=== PATIENT | male | born 1950 | race Caucasian/White ===

== ENCOUNTER 2017-06-07 19:09 | Observation (INO) | payer MEDICARE, OTHER ==
[~2017-06-07 19:09] MED LIST: DEXAMETHASONE SOD PHOS 4 MG/ML VIAL IV ONE; DIPH1TAB36 PO; LIDOCAINE HCL 1% PF 5 ML AMPULE OTHER ONE; ONDANSETRON HCL 4 MG/2 ML VIAL IV PUSH ONE; PROPOFOL 200 MG/20 ML AMP IV ONE; PROT40TA PO; ROCURONIUM INJ 50 MG/5 ML SYRINGE IV PUSH ONE; ULTR50TA PO
[2017-06-07 19:11] VITALS: BP 145/70; PULSE 112; RESP 16; TEMP 99.4; O2SAT 96
[2017-06-07] MEDS ORDERED: SODIUM CHLOR 0.9% 1000 ML INJ 1,000 ML IV SCH (19:26)
[2017-06-07] MEDS ORDERED: SODIUM CHLORIDE 0.9% FLUSH 10 ML FLUSH IV FLUSH PRN ×2 (19:30→22:30)
[2017-06-07] MEDS ORDERED: PIPERACIL-TAZO 3.375 GM PREMIX 50 ML IV ONE (19:30)
--- NOTE | 2017-06-07 19:40 | PD ---
HPI Chief Complaint: Abdominal Pain Time Seen by Provider: 19:23 Travel History International Travel<30 days: No Contact w/Intl Traveler<30days: No Traveled to known affect area: No History of Present Illness HPI This is a 66-year-old gentleman with history chronic bronchitis, diverticulosis , who presents today with complaints of abdominal pain since yesterday. Patient on outpatient CT scan that showed a nonruptured right sided appendicitis. The patient reports low-grade fevers with associated nausea vomiting. He denies any diarrhea. He's been treated for bronchitis over last week. He just finished his Medrol Dosepak and antibiotics. He states he was given a dose of steroids intramuscularly as well as an antibiotic that he's not sure what it was. There are no other complaints time my examination. PFSH Past Medical History Diminished Hearing: No Hypertension: Yes Tetanus Vaccination: Unknown Influenza Vaccination: No Social History Alcohol Use: Yes (rare) Tobacco Use: No Substance Use: No Allergies-Medications (Allergen,Severity, Reaction): Coded Allergies: No Known Allergies (Verified , 08/30/15) Reported Meds & Prescriptions Reported Meds & Active Scripts Active No Active Prescriptions or Reported Medications Review of Systems Except as stated in HPI: all other systems reviewed are Neg General / Constitutional: Positive: Fever, No: Chills (low-grade) HENT: No: Headaches, Lightheadedness, Neck Pain Cardiovascular: No: Chest Pain or Discomfort, Palpitations Respiratory: Positive: Cough, No: Shortness of Breath Gastrointestinal: Positive: Nausea, Vomiting, Abdominal Pain (right lower quadrant), No: Diarrhea Genitourinary: No: Frequency, Dysuria Neurologic: No: Weakness, Headache Physical Exam Narrative GENERAL: Well-nourished, well-developed patient, in no acute respiratory distress. SKIN: Focused skin assessment warm/dry. HEAD: Normocephalic/atraumatic. EYES: No scleral icterus. No injection or drainage. NECK: Supple, trachea midline. CARDIOVASCULAR: Regular rate and rhythm without murmurs, gallops, or rubs. RESPIRATORY: Breath sounds equal bilaterally. No accessory muscle use. GASTROINTESTINAL: Abdomen soft, obese. There is right lower sided abdominal pain with no rebound. MUSCULOSKELETAL: No cyanosis, or edema. NEUROLOGICAL: Awake and alert. Cranial nerves II through XII intact. Motor grossly within normal limits. Five out of 5 muscle strength in all muscle groups. Normal speech. Data Data Last Documented VS Vital Signs Date Time Temp Pulse Resp B/P (MAP) Pulse Ox O2 Delivery O2 Flow Rate FiO2 06/07/17 19:21 18 06/07/17 19:11 99.4 112 145/70 (95) 96 Room Air Orders Orders Complete Blood Count With Diff (06/07/17:) Comprehensive Metabolic Panel (06/07/17) Prothrombin Time / Inr (Pt) (06/07/17) Act Partial Throm Time (Ptt) (06/07/17) Iv Access Insert/Monitor (06/07/17) Ecg Monitoring (06/07/17) Oximetry (06/07/17) Sodium Chlor 0.9% 1000 Ml Inj (Ns 1000 M (06/07/17) Sodium Chloride 0.9% Flush (Ns Flush) (06/07/17:30) Piperacil-Tazo 3.375 Gm Premix (Zosyn 3. (06/07/17 19:30) Electrocardiogram (06/07/17:) Type And Screen (06/07/17:) Ondansetron Inj (Zofran Inj) (06/07/17 19:45) Hydromorphone Pf Inj (Dilaudid Pf Inj) (06/07/17 19:45) Labs Laboratory Tests Test 06/07/17:30 MDM Medical Decision Making Medical Screen Exam Complete: Yes Emergency Medical Condition: Yes Differential Diagnosis Appendicitis versus diverticulitis versus gastroenteritis Narrative Course 66-year-old male with history of chronic bronchitis, diverticulosis, presents with a diagnosis of appendicitis. The patient an outpatient collado CT scan that showed a nonruptured appendicitis. The patient has pain with insertion nausea vomiting. There is no reported diarrhea. He also has low-grade fever subjectively. Labs have been obtained. The patient will be made ready for the OR. Case was discussed with Dr. João Paulson, who was aware of the patient's arrival. He states he will touch base with the OR and make arrangements for him to be taken up as soon as possible. Patient is been premedicated with Zosyn. He is also been given pain medicine and nausea medicine as well as IVs fluids started. Diagnosis Primary Impression: Acute appendicitis Admitting Information Admitting Physician Requests: Observation Scripts No Active Prescriptions or Reported Meds Hany William MD Jun 07, 2017 19:40
[2017-06-07] MEDS ORDERED: ONDANSETRON HCL 4 MG/2 ML VIAL IV PUSH ONE (19:45)
[2017-06-07] MEDS ORDERED: HYDROmorphone HCL PF 1 MG/ML VIAL IV PUSH ONE (19:45)
[2017-06-07] MEDS ORDERED: ACETAMINOPHEN 1000 MG/100 ML 100 ML IV ONE (20:20)
[2017-06-07 20:21] LABS: AUTOMATED NEUTROPHIL # 17.7 TH/MM3 (1.8-7.7); BASOPHIL % 0.2 % (0.0-2.0); HEMATOCRIT 46.6 % (39.0-51.0); HEMO FLAGS DIFF FINAL; LYMPH % 3.8 % (9.0-44.0); LYMPHOCYTE # 0.7 TH/MM3 (1.0-4.8); MEAN CELL VOLUME 83.8 FL (80.0-100.0); MEAN CORPUSCULAR HEMOGLOBIN 27.5 PG (27.0-34.0); MEAN CORPUSCULAR HGB CONC 32.8 % (32.0-36.0); MONO % 2.6 % (0.0-8.0); NEUT % 93.4 % (16.0-70.0); PLATELET COUNT 233 TH/MM3 (150-450); RED BLOOD COUNT 5.56 MIL/MM3 (4.50-5.90); RED CELL DISTRIBUTION WIDTH 14.9 % (11.6-17.2)
[2017-06-07 20:22] LABS: APTT (PATIENT) 30.3 SEC (24.3-30.1); INTERNATIONAL NORMALIZED RATIO 1.1 RATIO; PROTHROMBIN TIME - PATIENT 12.3 SEC (9.8-11.6)
--- NOTE | 2017-06-07 20:22 | HHI.HP ---
HPI Service General Surgery Primary Care Physician Unknown Admission Diagnosis Appendicitis Chief Complaint: abdominal pain History of Present Illness Mr. Colon is a 66 yo M who presents after having an outpatient CT scan revealing acute appendicitis. The patient reports that he developed periumbilical and upper abdominal pain yesterday which worsened and localized to the right lower quadrant. He's had nausea and vomiting as well as chills. He denies any surgical history on his abdomen. He went to his primary care physician who ordered a CT scan of the abdomen and pelvis which was performed at [facility]. This revealed acute appendicitis and he was recommended to proceed directly to the emergency room. He's been treated over the last month for an upper respiratory tract infection with chronic cough. He' s been on antibiotics as well as steroids. Review of Systems Constitutional: COMPLAINS OF: Chills, DENIES: Fever Eyes: DENIES: Eye inflammation, Eye pain Respiratory: COMPLAINS OF: Cough, DENIES: Shortness of breath Cardiovascular: DENIES: Chest pain, Palpitations Gastrointestinal: COMPLAINS OF: Abdominal pain, Nausea, Vomiting Musculoskeletal: DENIES: Muscle aches, Back pain Integumentary: DENIES: Pruritus, Rash Neurologic: DENIES: Paresthesias, Seizures Past Family Social History Past Medical History Hypertension Diverticulosis Past Surgical History None Reported Medications Reported Meds & Active Scripts Active No Active Prescriptions or Reported Medications Allergies: Coded Allergies: No Known Allergies (Verified , 08/30/15) Active Ordered Medications Current Medications Medications (Trade) Dose Ordered Sig/Serafin Route Start Time Stop Time Status Last Admin Sodium Chloride 1,000 ml @ 125 mls/hr Q8H IV 06/07/17 19:26 06/08/17 03:25 (NS Flush) 2 ml UNSCH PRN IV FLUSH 06/07/17 19:30 Family History Noncontributory Social History Rare alcohol use. No tobacco or drug use. 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 Physical Exam Vital Signs Vital Signs Date Time Temp Pulse Resp B/P (MAP) Pulse Ox O2 Delivery O2 Flow Rate FiO2 06/07/17 19:21 18 06/07/17 19:11 99.4 112 16 145/70 (95) 96 Room Air Physical Exam GENERAL: Awake and alert. No acute distress. Cooperative. Obese. HEAD: Normocephalic. Atraumatic. EYES: Pupils equal round and reactive to light bilaterally. No scleral icterus. CHEST: Lungs clear to auscultation bilaterally with no wheezing or rhonchi. No respiratory distress. CARDIOVASCULAR: Regular rate and rhythm. ABDOMEN: Rounded, obese. Positive rebound tenderness in the right lower quadrant. Otherwise soft and nontender. Positive psoas sign. EXTREMITIES: No cyanosis or edema. SKIN: Warm, dry, nonjaundiced. Laboratory Laboratory Tests Test 06/07/17 19:[address] images and report were reviewed from the outpatient CT. He has acute appendicitis with 2 appendicoliths. There is some fluid surrounding the appendix. Caprini VTE Risk Assessment Caprini VTE Risk Assessment: No/Low Risk (score <= 1) Caprini Risk Assessment Model Point Value = 1 Point Value = 2 Point Value = 3 Point Value = 5 Age 41-60 Minor surgery BMI > 25 kg/m2 Swollen legs Varicose veins or History of unexplained or recurrent spontaneous Oral contraceptives or hormone replacement Sepsis (< 1 month) Serious lung disease, including pneumonia (< 1 month) Abnormal pulmonary function Acute myocardial infarction Congestive heart failure (< 1 month) History of inflammatory bowel disease Medical patient at bed rest Age 61-74 Arthroscopic surgery Major open surgery (> 45 min) Laparoscopic surgery (> 45 min) Malignancy Confined to bed (> 72 hours) Immobilizing plaster cast Central venous access Age >= 75 History of VTE Family history of VTE Factor V Leiden Prothrombin [id number] Lupus anticoagulant Anticardiolipin antibodies Elevated serum homocysteine Heparin-induced thrombocytopenia Other congenital or acquired thrombophilia Stroke (< 1 month) Elective arthroplasty Hip, pelvis, or leg fracture Acute spinal cord injury (< 1 month) Prophylaxis Regimen Total Risk Factor Score Risk Level Prophylaxis Regimen 0-1 Low Early ambulation 2 Moderate Order ONE of the following: *Sequential Compression Device (SCD) *Heparin 5000 units SQ BID 3-4 Higher Order ONE of the following medications: *Heparin 5000 units SQ TID *Enoxaparin/Lovenox 40 mg SQ daily (WT < 150 kg, CrCl > 30 mL/min) *Enoxaparin/Lovenox 30 mg SQ daily (WT < 150 kg, CrCl > 10-29 mL/min) *Enoxaparin/Lovenox 30 mg SQ BID (WT < 150 kg, CrCl > 30 mL/min) AND/OR *Sequential Compression Device (SCD) 5 or more Highest Order ONE of the following medications: *Heparin 5000 units SQ TID (Preferred with Epidurals) *Enoxaparin/Lovenox 40 mg SQ daily (WT < 150 kg, CrCl > 30 mL/min) *Enoxaparin/Lovenox 30 mg SQ daily (WT < 150 kg, CrCl > 10-29 mL/min) *Enoxaparin/Lovenox 30 mg SQ BID (WT < 150 kg, CrCl > 30 mL/min) AND *Sequential Compression Device (SCD) Assessment and Plan Assessment and Plan 66-year-old male who has acute appendicitis. He is receiving Zosyn in the emergency department. Plan to proceed to the operating room for laparoscopic possible open appendectomy. The case was discussed in detail with the patient including risks benefits and details of the procedure. He desires to proceed. Kaleb Paulson MD Jun 07, 2017 20:22
[2017-06-07] MEDS ORDERED: BUPIVACAINE/EPINEPHRINE 0.25% PF 30 ML VIAL ONE (20:26)
[2017-06-07 20:29] VITALS: BP 133/74; PULSE 104; RESP 18; O2SAT 95
[2017-06-07 21:03] LABS: ANION GAP 8 MEQ/L (5-15); AST (GOT) 24 U/L (15-37); BICARBONATE 22.6 MEQ/L (21.0-32.0); BLOOD UREA NITROGEN 17 MG/DL (7-18); CHLORIDE 97 MEQ/L (98-107); GLOMERULAR FILTRATION RATE 76 ML/MIN (>89); POTASSIUM 4.6 MEQ/L (3.5-5.1); SODIUM (NA) 128 MEQ/L (136-145)
[2017-06-07] MEDS ORDERED: SUGAMMADEX SODIUM 200 MG/2 ML VIAL IV PUSH ONE ×2 (21:04)
[2017-06-07 21:09] LABS: ALKALINE PHOSPHATASE 55 U/L (45-117); ALT (GPT) 47 U/L (12-78); TOTAL BILIRUBIN ADULT 1.2 MG/DL (0.2-1.0)
[2017-06-07] MEDS ORDERED: D5-1/2 NS + KCL 20 MEQ INJ 1,000 ML IV SCH (22:19)
--- NOTE | 2017-06-07 22:27 | PD.OP ---
cc: Kaleb Paulson MD Operative Report Date of Surgery: Jun 07, 2017 Preoperative Diagnosis: (1) Acute appendicitis Postoperative Diagnosis: (1) Acute appendicitis with appendiceal abscess Procedure: Laparoscopic appendectomy with drainage of abscess Anesthesia: MARIAE STHER Surgeon: Kaleb Paulson Overcoiler(s): José LOZOYA Operation and Findings: EBL: 5 cc Complications: None apparent Operative findings: The appendix was inflamed and indurated. It was somewhat retrocecal. There was a small associated abscess present which was drained. The sigmoid colon had sharp angulated loop and adhesions to the bladder. There was no acute sigmoid inflammation. Procedure in detail: The patient was taken to the operating room placed in the supine position with left arm tucked. General endotracheal anesthesia was induced and the abdomen was prepped and draped in usual sterile fashion. Surgical timeout was performed to verify correct patient procedure and site. Perioperative antibiotics were administered as necessary. Local anesthetic was injected in the skin and subcutaneous tissue at the superior umbilicus and a 5 mm incision made. Using the 5 mm Optiview trocar with laparoscope the abdomen was directly entered. Was then insufflated to 15 mmHg with CO2 gas which the patient tolerated well. The patient was then placed in Trendelenburg position and turned slightly to the left. A 5 mm port was placed under laparoscopic visualization of the left lower abdomen and a 12 mm port in the suprapubic area. Attention was turned to the right lower quadrant. The cecum was flipped over on itself. There is induration and finally the tip of the appendix was identified. The appendix was dilated and inflamed and indurated. It was carefully dissected from surrounding tissues bluntly and with Harmonic scalpel. A small periappendiceal abscess was entered and was drained.. The mesoappendix was taken down with the Harmonic scalpel. The appendix was seen directly entering the cecum at its base. Two #1 PDS Endoloops were placed at the base the appendix and the appendix transected with Harmonic scalpel. It was then removed using an Endo Catch bag. The appendiceal stump was intact with no leakage. The right lower quadrant and pelvis were copiously irrigated. During irrigation of the pelvis I noticed that there were adhesions from the sigmoid colon to the bladder. The sigmoid colon had a fairly sharp turn with more adhesions to the pelvic and abdominal sidewall. One adhesion to the anterior abdominal wall was divided to prevent future internal hernia. At this point trochars were removed and the abdomen was allowed to desufflate. The fascia at the 12 mm port site was closed with a single 0 Vicryl suture. Skin closed with subcuticular Monocryl as well as Dermabond. The patient tolerated the procedure well was extubated and taken to PACU in stable condition. Kaleb Paulson MD Jun 07, 2017 22:27
[2017-06-07] MEDS ORDERED: Post-op Orders (for Pharmacy) MISC XX ONE (22:30)
[2017-06-07] MEDS ORDERED: oxyCODONE/ACETAMINOPHEN 5 MG/325 MG TAB PO PRN (22:30)
[2017-06-07] MEDS ORDERED: diphenhydrAMINE HCL 50 MG/ML VIAL IV PUSH PRN (22:30)
[2017-06-07] MEDS ORDERED: NALOXONE HCL 0.4 MG/ML AMP IV PUSH PRN (22:30)
[2017-06-07] MEDS ORDERED: ONDANSETRON HCL 4 MG/2 ML VIAL IV PUSH PRN (22:30)
[2017-06-07] MEDS ORDERED: DO NOT ADM ANY ANTICOAGULANT DRUGS PRN (22:59)
[2017-06-07] MEDS ORDERED: *morphine SULFATE 8 MG/ML PERIprocedure ONLY ONE (23:14)
[2017-06-08] VITALS (8 sets, daily range): BP systolic 112–145; BP diastolic 65–88; PULSE 81–93; RESP 17–18; TEMP 95.7–98; O2SAT 92–100
[2017-06-08] MEDS: oxyCODONE/ACETAMINOPHEN 10 MG/325 MG TAB PO PRN ×4 (00:56→21:18)
[2017-06-08] MEDS: PIPERACIL-TAZO 3.375 GM PREMIX 50 ML IV SCH ×4 (02:17→21:16)
[2017-06-08] MEDS: HYDROmorphone HCL PF 1 MG/ML VIAL IV PUSH PRN ×4 (02:18→18:25)
--- NOTE | 2017-06-08 07:27 | HHI.PR ---
Subjective Subjective Notes No flatus. Joseluis water. No nausea. Pain is ok. Objective Vitals/I&O Vital Signs Date Time Temp Pulse Resp B/P (MAP) Pulse Ox O2 Delivery O2 Flow Rate FiO2 06/08/17 04:00 95.9 92 17 134/76 (95) 93 06/07/17 23:45 Nasal Cannula 2 Labs Laboratory Tests Test 06/07/17 19:30 06/07/17 20:26 White Blood Count 19.0 Red Blood Count 5.56 Hemoglobin 15.3 Hematocrit 46.6 Mean Corpuscular Volume 83.8 Mean Corpuscular Hemoglobin 27.5 Mean Corpuscular Hemoglobin Concent 32.8 Red Cell Distribution Width 14.9 Platelet Count 233 Mean Platelet Volume 9.9 Neutrophils (%) (Auto) 93.4 Lymphocytes (%) (Auto) 3.8 Monocytes (%) (Auto) 2.6 Eosinophils (%) (Auto) 0.0 Basophils (%) (Auto) 0.2 Neutrophils # (Auto) 17.7 Lymphocytes # (Auto) 0.7 Monocytes # (Auto) 0.5 Eosinophils # (Auto) 0.0 Basophils # (Auto) 0.0 CBC Comment DIFF FINAL Differential Comment Prothrombin Time 12.3 Prothromb Time International Ratio 1.1 Activated Partial Thromboplast Time 30.3 Blood Urea Nitrogen 17 Creatinine 0.98 Random Glucose 135 Total Protein 8.3 Albumin 3.9 Calcium Level 8.7 Alkaline Phosphatase 55 Aspartate Amino Transf (AST/SGOT) 24 Alanine Aminotransferase (ALT/SGPT) 47 Total Bilirubin 1.2 Sodium Level 128 Potassium Level 4.6 Chloride Level 97 Carbon Dioxide Level 22.6 Anion Gap 8 Estimat Glomerular Filtration Rate [address] images and report were reviewed from the outpatient CT. He has acute appendicitis with 2 appendicoliths. There is some fluid surrounding the appendix. Narrative Exam NAD Nonlabored breathing Abd: soft, round, mild distention, inc c/d/i A/P Assessment and Plan 66 yo M POD 1 s/p lap appy for appendicitis with abscess. No flatus. No nausea. Advance diet. Continue IV antibiotics. Kaleb Paulson MD Jun 08, 2017 07:27
[2017-06-08] MEDS: SODIUM CHLORIDE 0.9% FLUSH 10 ML FLUSH IV FLUSH SCH ×2 (07:36→21:17)
--- NOTE | 2017-06-08 14:16 | EKG ---
Date Performed: 06/07/2017 Time Performed: 20:28:32 PTAGE: 66 years EKG: SINUS TACHYCARDIA INFERIOR MYOCARDIAL INFARCTION ABNORMAL ECG NO PREVIOUS TRACING DOCTOR: Jacobo Samuel Interpretating Date/Time 06/08/2017 14:11:04
[2017-06-08] MEDS ORDERED: ENOXAPARIN SODIUM 40 MG/0.4 ML SYRINGE SQ SCH (22:00)
[2017-06-09] VITALS: BP 129/70; PULSE 99; RESP 17; TEMP 98.1; O2SAT 93
[2017-06-09] MEDS: PIPERACIL-TAZO 3.375 GM PREMIX 50 ML IV SCH ×2 (02:00→08:34)
[2017-06-09] MEDS: oxyCODONE/ACETAMINOPHEN 10 MG/325 MG TAB PO PRN (03:59)
[2017-06-09 08:00] VITALS: BP 112/68; PULSE 85; RESP 16; TEMP 97; O2SAT 96
[2017-06-09] MEDS: SODIUM CHLORIDE 0.9% FLUSH 10 ML FLUSH IV FLUSH SCH (08:35)
[2017-06-09] MEDS ORDERED: METR-1 PO (10:22)
[2017-06-09] MEDS ORDERED: OXYC1TAB63 PO (10:22)
[2017-06-09] MEDS ORDERED: LEVO750T3 PO (10:22)
--- NOTE | 2017-06-09 10:24 | HHI.DS ---
Discharge Summary Admission Date Jun 07, 2017 at 20:19 Discharge Date: Jun 09, 2017 Admitting Diagnosis acute appendicitis, (1) Acute appendicitis with appendiceal abscess ICD Codes: K35.3 - Acute appendicitis with localized peritonitis Procedures laparoscopic appendectomy Brief History Mr. Colon is a 66 yo M who presents after having an outpatient CT scan revealing acute appendicitis. The patient reports that he developed periumbilical and upper abdominal pain yesterday which worsened and localized to the right lower quadrant. He's had nausea and vomiting as well as chills. He denies any surgical history on his abdomen. He went to his primary care physician who ordered a CT scan of the abdomen and pelvis which was performed at [facility]. This revealed acute appendicitis and he was recommended to proceed directly to the emergency room. He's been treated over the last month for an upper respiratory tract infection with chronic cough. He' s been on antibiotics as well as steroids. CBC/BMP: 06/07/17192906/07/172025 Significant Findings Laboratory Tests Test 06/07/17 19:30 06/07/17 20:26 White Blood Count 19.0 TH/MM3 (4.0-11.0) Neutrophils (%) (Auto) 93.4 % (16.0-70.0) Lymphocytes (%) (Auto) 3.8 % (9.0-44.0) Neutrophils # (Auto) 17.7 TH/MM3 (1.8-7.7) Lymphocytes # (Auto) 0.7 TH/MM3 (1.0-4.8) Prothrombin Time 12.3 SEC (9.8-11.6) Activated Partial Thromboplast Time 30.3 SEC (24.3-30.1) Random Glucose 135 MG/DL (74-106) Total Protein 8.3 GM/DL (6.4-8.2) Total Bilirubin 1.2 MG/DL (0.2-1.0) Sodium Level 128 MEQ/L (136-145) Chloride Level 97 MEQ/L (98-107) Estimat Glomerular Filtration Rate 76 ML/MIN (>89) PE at Discharge NAD Nonlabored breathing Abd: soft, round, mild distention, inc c/d/i Hospital Course He has done well postop. Initially tolerated clears and advanced to regular diet. Due to associated abscess was continued on IV antibiotics and discharged home on oral antibiotics. Pt Condition on Discharge: Good Discharge Disposition: Discharge Home Discharge Instructions DIET: Follow Instructions for: As Tolerated, No Restrictions Activities you can perform: See Additionl Instruction Other Activity Instructions: Ok to shower. Avoid heavy lifting. No driving while on narcotics. Follow up Referrals: Surgical - 2 Weeks with Kaleb Paulson MD New Medications: Levofloxacin (Levofloxacin) 750 Mg Tablet 750 MG PO DAILY for Infection, #5 TAB 0 Refills Metronidazole (Flagyl) 500 Mg Tab 500 MG PO TID for Infection, #15 TAB 0 Refills Oxycodone-Acetaminophen (Oxycodone-Acetaminophen) 5-325 mg Tab 1-2 TAB PO Q4H PRN for PAIN, #25 TAB 0 Refills Kaleb Paulson MD Jun 09, 2017 10:23
== END 2017-06-09 11:01 | disposition home or self-care (01) ==
LOC: NEPE 19:09 → NEDA 20:19 → N07A 06-08 00:30
PROVIDERS: ADMIT Surgery; ATTEND Surgery
DX: K35.3 Acute appendicitis with localized peritonitis (principal); R00.0 Tachycardia, unspecified; R94.31 Abnormal electrocardiogram [ECG] [EKG]; I10 Essential (primary) hypertension; J42 Unspecified chronic bronchitis
CPT/HCPCS: 00840; 44970; 80053; 85025; 85610; 85730; 86850; 86900; 86901; 88304; 93005; 94150; 96361; 96365; 96366; 96372; 96375; 96376; 99285; G0378; J0131; J1100; J1170; J1200; J1650; J2270; J2405; J2543; J3010; J3480; J7030